=== PATIENT | male | born 1955 | race Caucasian/White ===

== ENCOUNTER 2019-07-17 17:10 | Emergency (ER) | payer BC, SELFPAY ==
[2019-07-17 17:28] VITALS: BP 134/72; PULSE 69; RESP 18; O2SAT 97
--- NOTE | 2019-07-17 17:47 | ED.GENADUL_ITS ---
Discharge Plan Disposition Patient Disposition: HOME Condition: Good Discharge Details Chief Complaint: Orthopedic Clinical Impression: Fracture of triquetral bone of right wrist Primary Care Provider: None,None ED Provider: Claudine Olguin Home Meds and New Rx's Prescriptions: Continued atorvastatin [Lipitor] 10 MG tablet 80 mg PO DAILY RF: 0 lisinopril-hydrochlorothiazide 20-12.5 mg Tablet 1 tab PO DAILY RF: 0 clopidogrel [Plavix] 75 mg Tablet 75 mg PO DAILY RF: 0 pantoprazole [Protonix] 40 mg Tablet,Delayed Release (Dr/Ec) 40 mg PO DAILY RF: 0 Robilex tablet See Rx Instructions .ROUTE .COMPLEX RF: 0 Discharge Instructions Instructions: Hand Fracture (ED) Additional Instructions: Encourage rest, ice, elevation. You may use Tylenol as needed for discomfort. Please call orthopedics tomorrow to schedule follow up appointment. Keep splint in place until evaluated by orthopedics. If you develop new/worsening symptoms please seek care urgently once again. Medical Decision Making Patient is a pleasant 63 RHD male presenting today with c/c of right hand pain. States that this AM he FOOSHed on his right hand when he slipped on ice. Denies other injury. Did not strike his head, no LOC. Denies neck pain, back pain. Denies numbness/tingling. No previous surgeries/fractures. Patient is anticoagulated. Patient has swelling and pain at the base of the 5th metacarpal along the dorsal aspect of the hand. Sensation intact, ligamentously intact. Plan for imaging, will give PO Tylenol. Imaging reviewed by radiologist: FINDINGS: Bones/joints: There are a couple small ossific fragments in the dorsal aspect of the wrist mid carpal level seen only on the lateral view. These are most consistent with a triquetral fracture. No other fracture or other acute bone or articular abnormality is seen. There are well demarcated erosions of the DIP joints in the radial side of the ring finger and ulnar side of the index finger suggesting erosive arthritis. The joint spaces, however, are well preserved. Soft tissues: There is moderate soft tissue swelling in the dorsum of the wrist consistent with an acute triquetral fracture. The soft tissues are otherwise within normal limits. IMPRESSION: 1. Findings consistent with triquetral fracture. 2. Distal interphalangeal erosions suggesting mild or early erosive arthritis. Discussed findings with the patient. Patient fitted with volar splint. Complains recently by myself. Patient tolerated this procedure well. Capillary refill intact after splint. Tolerated this well. Encourage rest, ice, elevation. Tylenol as needed for discomfort. Patient lives in [place], copy of images were sent home with him. They will contact orthopedics tomorrow to schedule follow-up appointment. HPI General Mode of arrival: ambulatory . Date/Time Provider Initiated Documentation: 07/17/19 17:47 . Limitations to Documentation: no limitations . Information obtained by: patient, family () and RN notes reviewed . History of Present Illness 63 year old M presents to the emergency department with the chief complaint of right hand pain, described as moderate, with intensity rated at 5. Quality is described as aching, and is localized to the right and upper extremity. Patient reports no radiation. Patient started experiencing this hour(s) and it has been constant. Immobilization improves symptom(s), Movement worsens symptoms . Patient notes no other symptoms.. Patient did receive the following treatments prior to arrival, none Related Data Home Medications Medication Instructions Recorded Confirmed atorvastatin [Lipitor] 80 mg PO DAILY 12/21/12 07/17/19 Robilex See Rx Instructions .ROUTE .COMPLEX 07/17/19 07/17/19 clopidogrel [Plavix] 75 mg PO DAILY 07/17/19 07/17/19 lisinopril-hydrochlorothiazide 1 tab PO DAILY 07/17/19 07/17/19 pantoprazole [Protonix] 40 mg PO DAILY 07/17/19 07/17/19 Allergies Allergy/AdvReac Type Severity Reaction Status Date / Time Penicillins Allergy Unknown Unverified 07/17/19 17:36 General Stated Complaint: Orthopedic PIPO: 4 Review of Systems Constitutional Constitutional: Reports as per HPI, Denies chills, Denies fever(s), Denies headache(s) and Denies weakness ENT Ears, Nose, Mouth, and Throat: Denies headache(s) Cardiovascular Cardiovascular: Reports as per HPI Respiratory Respiratory: Reports as per HPI and Denies cough Musculoskeletal Musculoskeletal: Reports as per HPI and Denies tingling Integumentary/Breasts Skin/Breast: Reports as per HPI, Denies rash and Denies wounds Neurologic Neurologic: Reports as per HPI, Denies headache(s), Denies tingling, Denies paresthesias and Denies weakness PFSH Social History Smoking/Tobacco Use Status: Former Tobacco Use Alcohol Intake: former Drug use: Never Substance use type: does not use Exam Const General: cooperative, healthy appearing, comfortable, no acute distress, well developed and well groomed Nutritional Appearance: average body habitus and well nourished Orientation: alert and awake Resp Effort & Inspection: normal respiratory effort, able to speak in complete sentences and no respiratory distress Cardio Rate: regular rate Rhythm: regular rhythm Skin General skin exam: ecchymosis (dorsal, ulnar right hand) Neuro General: alert and awake Cognition: normal cognition Speech: speech normal Gait: normal gait Motor: muscle tone normal throughout Sensory Exam: no sensory deficits noted Extrem Right upper extremity: normal capillary refill, no joint enlargement, elbow /forearm Details: normal to inspection and normal ROM; no tenderness and no swelling, wrist Details: normal to inspection, normal vascular exam and radial pulse present; no tenderness (no pain over snuff box), no swelling, ROM abnormal (limited extension, causes pain in ulnar side of proximal hand), no unusual warmth, no abrasions, no lacerations and no deformity and hand Details: abnormal to inspection (ecchymosis, swelling proximal ulnar dorsal hand), normal capillary refill, neuromotor exam normal, neurosensory exam normal, tendon exam normal, tenderness Location: of the dorsal hand, normal ROM of fingers, swelling and ecchymosis; no unusual warmth and no abrasions; ROM limited (limited flexi on of 5th digits secondary ot pain in proximal hand) Hand/finger images: 1. area of swelling ecchymosis and pain Psych Appearance: grossly normal and well kempt Mental Status: mental status grossly normal Speech and Movement: speech and movement normal Course Vital Signs Vital signs: Vital Signs Pulse 69 07/17/19 17:28 Respiratory Rate 18 07/17/19 17:28 Blood Pressure 134/72 07/17/19 17:28 Pulse Oximetry 97 07/17/19 17:28 Pulse 69 07/17/19 17:28 Respiratory Rate 18 07/17/19 17:28 Respiratory Effort Non-Labored 07/17/19 17:36 Blood Pressure 134/72 07/17/19 17:28 Blood Pressure Position Sitting 07/17/19 17:28 Pulse Oximetry 97 01/14/20 17:28 Oxygen Delivery Method Room Air 07/17/19 17:28 Oxygen Flow Rate 0 07/17/19 17:28 Pain Level 5 07/17/19 17:28
--- NOTE | 2019-07-17 18:21 | DI.RAD_ITS ---
EXAM: XR HAND RT COMPLETE INDICATION: FOOSH, FELL, PAIN COMPARISON: No exams were available for comparison TECHNIQUE: 2D digital imaging was performed. FINDINGS: There are tiny osseous fragments seen at the dorsum of the wrist at the midcarpal level. The finding s are most suggestive of a triquetral fracture. No other fracture or dislocation is seen. There are erosive changes seen at the PIP joints of the index and ring fingers. Findings are suggestive of er osive arthritis. There is soft tissue swelling on the dorsum of the wrist. IMPRESSION: Findings suggestive of a triquetral fracture.
[2019-07-17] MEDS: Acetaminophen 500 MG TAB 1000 MG PO (18:26)
--- NOTE | 2019-07-17 18:36 | DI.VRAD_ITS ---
PROCEDURE INFORMATION: Exam: XR Right Hand Exam date and time: 07/17/2019 6:23 PM Age: 63 years old Clinical indication: Injury or trauma; Fall; Initial encounter; Blunt trauma (contusions or hematomas; Hand; Right; Injury details: Pain to lateral aspect of fifth metacarpal TECHNIQUE: Imaging protocol: XR Right hand. Views: 3 or more views. COMPARISON: No relevant prior studies available. FINDINGS: Bones/joints: There are a couple small ossific fragments in the dorsal aspect of the wrist mid carpal level seen only on the lateral view. These are most consistent with a triquetral fracture. No other fracture or other acute bone or articular abnormality is seen. There are well demarcated erosions of the DIP joints in the radial side of the ring finger and ulnar side of the index finger suggesting erosive arthritis. The joint spaces, however, are well preserved. Soft tissues: There is moderate soft tissue swelling in the dorsum of the wrist consistent with an acute triquetral fracture. The soft tissues are otherwise within normal limits. IMPRESSION: 1. Findings consistent with triquetral fracture. 2. Distal interphalangeal erosions suggesting mild or early erosive arthritis. Dictated and Authenticated by: Chidi See MD. Ordering:SHWETA Chow MD
== END 2019-07-17 19:35 | disposition home or self-care (01) ==
PROVIDERS: Emergency Provider Physician Assistant
DX: S62.111A Displaced fracture of triquetrum [cuneiform] bone, right wrist, initial encounter for closed fracture (principal); W00.0XXA Fall on same level due to ice and snow, initial encounter
CPT/HCPCS: 25630; 73130